=== PATIENT | female | born 1935 | race Caucasian/White ===

== ENCOUNTER → 2016-12-19 | Outpatient (CLI) | payer OTHER | LOC: BHFA 10:00 | PROVIDERS: ATTEND Internal Medicine Cardiovascular Disease | DX: I49.3 Ventricular premature depolarization (principal) ==

== ENCOUNTER → 2016-12-26 | Outpatient (CLI) | payer OTHER ==
[~2016-12-26] MED LIST: IOPAMIDOL (ISOVUE 370) 100 ML BTL IV ONE
== END ==
LOC: FIMAGING 14:00
PROVIDERS: ATTEND Physician Assistant
DX: I49.3 Ventricular premature depolarization (principal); R91.1 Solitary pulmonary nodule
CPT/HCPCS: 71275; Q9967

== ENCOUNTER → 2017-08-08 | Outpatient (CLI) | payer OTHER | LOC: GIMAGING 10:51 | PROVIDERS: ATTEND Internal Medicine Geriatric Medicine | DX: R07.81 Pleurodynia (principal); R06.02 Shortness of breath | CPT/HCPCS: 71111-PO ==